=== PATIENT | male | born 1945 | race Caucasian/White ===

== ENCOUNTER 2023-11-25 12:32 | Inpatient (IN) | payer OTHER ==
[2023-11-25 14:16] LABS: BASO % 0.9 % (0-2.0); EOS % 2.6 % (0-4.5); HEMATOCRIT 17.2 % (35.4-49); LYMPH % 7.3 % (8-40); MCH 29.5 pg (25.7-33.7); MCHC 31.6 g/dl (32.0-35.9); MEAN CELL VOLUME 93.2 fl (80-96); MEAN PLT VOLUME 6.4 fl (7.5-11.1); MONO % 10.9 % (3.8-10.2); NEUT % 78.3 % (42.8-82.8); PLATELET COUNT 229 10^3/uL (134-434); RBC 1.85 M/mm3 (4.00-5.60); RDW 19.5 % (11.9-15.9); WHITE BLOOD COUNT 13.5 K/mm3 (4.0-10.0)
[2023-11-25 14:22] LABS: INR 1.3 (0.83-1.09); PROTHROMBIN TIME (PATIENT) 14.6 SEC (9.7-13.0)
[2023-11-25 14:24] LABS: HEMOGLOBIN 5.4 GM/dL (11.7-16.9)
[2023-11-25 14:25] LABS: ACTIVATED PTT 33.3 SECONDS (25.2-36.5)
[2023-11-25 14:35] LABS: RETICULOCYTES 2.18 % (0.5-1.5)
[2023-11-25 14:40] LABS: CHLORIDE 105 mmol/L (98-107); POTASSIUM 3.3 mmol/L (3.5-5.1); SODIUM 142 mmol/L (136-145)
[2023-11-25 14:42] LABS: CALCIUM 8.8 mg/dL (8.5-10.1)
[2023-11-25 14:43] LABS: ALBUMIN 2.1 g/dl (3.4-5.0); ANION GAP 11 mmol/L (4-13); BLOOD UREA NITROGEN 45.4 mg/dL (7-18); CO2 25 mmol/L (21-32); GLUCOSE,RANDOM 87 mg/dL (74-106); MAGNESIUM 2.2 mg/dL (1.8-2.4)
[2023-11-25 14:46] LABS: CREATININE 6.4 mg/dL (0.55-1.3); PHOSPHOROUS 2.7 mg/dL (2.5-4.9); SGOT/AST 18 U/L (15-37); TOTAL IRON BINDING CAPACITY 102 ug/dL (250-450)
[2023-11-25 14:47] LABS: BILIRUBIN,TOTAL 0.5 mg/dL (0.2-1); IRON SERUM 21 ug/dL (50-175)
[2023-11-25 14:49] LABS: ALK PHOS 71 U/L (45-117)
[2023-11-25 14:54] LABS: SGPT/ALT < 6 U/L (13-61)
[2023-11-25] MEDS ORDERED: metoPROLOL SUCCINATE 25 MG TAB.SR.24H (FP) PO ONE (16:47)
[2023-11-25] MEDS: metoPROLOL SUCCINATE 25 MG TAB.SR.24H (FP) PO SCH (16:49)
[2023-11-25] MEDS ORDERED: SODIUM CHLORIDE 250 ML IV PRN (20:51)
[2023-11-25] MEDS ORDERED: hydrALAZINE HCL 25 MG TABLET (FP) PO SCH (22:00)
[2023-11-26 08:36] LABS: HEMATOCRIT 24.6 % (35.4-49); HEMOGLOBIN 8.1 GM/dL (11.7-16.9); MCH 30.2 pg (25.7-33.7); MCHC 33.1 g/dl (32.0-35.9); MEAN CELL VOLUME 91.2 fl (80-96); MEAN PLT VOLUME 6.5 fl (7.5-11.1); PLATELET COUNT 233 10^3/uL (134-434); RDW 17.7 % (11.9-15.9); WHITE BLOOD COUNT 18.1 K/mm3 (4.0-10.0)
[2023-11-26 08:48] LABS: CHLORIDE 104 mmol/L (98-107); POTASSIUM 3.4 mmol/L (3.5-5.1); SODIUM 141 mmol/L (136-145)
[2023-11-26 08:56] LABS: CALCIUM 9.2 mg/dL (8.5-10.1); CREATININE 7.2 mg/dL (0.55-1.3)
[2023-11-26 08:57] LABS: ALBUMIN 2.3 g/dl (3.4-5.0); ANION GAP 10 mmol/L (4-13); BLOOD UREA NITROGEN 53.4 mg/dL (7-18); CO2 26 mmol/L (21-32); GLUCOSE,RANDOM 86 mg/dL (74-106); SGOT/AST 15 U/L (15-37)
[2023-11-26 08:58] LABS: TOT PROT 7.4 g/dl (6.4-8.2)
[2023-11-26 08:59] LABS: ALK PHOS 78 U/L (45-117)
[2023-11-26 09:06] LABS: BILIRUBIN,TOTAL 0.8 mg/dL (0.2-1); SGPT/ALT < 6 U/L (13-61)
[2023-11-26 16:24] VITALS: BMI 19.8
[2023-11-26] MEDS: EPOETIN ALFA-EPBX 10,000 UNIT/ML VIAL SQ ONE (17:06)
[2023-11-27] MEDS: VANCOMYCIN/WATER FOR INJ (PEG) 1,000 MG/200 ML BAG IVPB ONE (03:29)
[2023-11-27] MEDS: ACETAMINOPHEN 1000 MG/100 ML BAG IVPB ONE (03:30)
[2023-11-27] MEDS: PIPERACILLIN/TAZOB 3.375 GM 3.375 GM in DEXTROSE 5%-WATER - 50 ML IVPB ONE (03:30)
[2023-11-27 07:54] LABS: HEMATOCRIT 26.6 % (35.4-49); HEMOGLOBIN 8.6 GM/dL (11.7-16.9); MCH 29.8 pg (25.7-33.7); MCHC 32.3 g/dl (32.0-35.9); MEAN CELL VOLUME 92.3 fl (80-96); PLATELET COUNT 244 10^3/uL (134-434); RBC 2.88 M/mm3 (4.00-5.60); RDW 18.3 % (11.9-15.9); WHITE BLOOD COUNT 24.6 K/mm3 (4.0-10.0)
[2023-11-27 08:00] LABS: CHLORIDE 102 mmol/L (98-107); POTASSIUM 3.3 mmol/L (3.5-5.1); SODIUM 141 mmol/L (136-145)
[2023-11-27 08:10] LABS: ALBUMIN 2.2 g/dl (3.4-5.0); ANION GAP 10 mmol/L (4-13); CO2 28 mmol/L (21-32); GLUCOSE,RANDOM 66 mg/dL (74-106)
[2023-11-27 08:11] LABS: CREATININE 4.4 mg/dL (0.55-1.3)
[2023-11-27 08:12] LABS: TOT PROT 7.4 g/dl (6.4-8.2)
[2023-11-27 08:13] LABS: ALK PHOS 84 U/L (45-117); BILIRUBIN,TOTAL 0.8 mg/dL (0.2-1)
[2023-11-27 08:14] LABS: SGOT/AST 22 U/L (15-37)
[2023-11-27 08:15] LABS: BLOOD UREA NITROGEN 28.3 mg/dL (7-18); SGPT/ALT < 6 U/L (13-61)
[2023-11-27 08:49] LABS: ANISOCYTOSIS 1+; MACROCYTOSIS 1+
[2023-11-27] MEDS: AMINO ACIDS 4.25%/D5W 1,000 ML IV SCH (09:29)
[2023-11-27 10:04] LABS: ARTERIAL BLOOD GAS BASE EXCESS 3.2 mmol/L (-2-2); ARTERIAL BLOOD GAS PO2 76.6 mmHg (80-100)
[2023-11-27 10:12] LABS: ALLENS TEST POSITIVE
[2023-11-27] MEDS: PIPERACILLIN/TAZOB 2.25 GM 2.25 GM in DEXTROSE 5%-WATER - 50 ML IVPB SCH ×3 (10:36→18:53)
[2023-11-27] MEDS ORDERED: SODIUM CHLORIDE 250 ML IV PRN (13:54)
[2023-11-27] MEDS: KCL 10 MEQ IVPB 10 MEQ/100 ML INFUS.BAG IVPB SCH (15:37)
[2023-11-28 07:44] LABS: BASO % 0.6 % (0-2.0); EOS % 1.1 % (0-4.5); HEMOGLOBIN 7.6 GM/dL (11.7-16.9); LYMPH % 7.4 % (8-40); MCH 29.7 pg (25.7-33.7); MCHC 31.7 g/dl (32.0-35.9); MEAN PLT VOLUME 7.1 fl (7.5-11.1); MONO % 10.6 % (3.8-10.2); NEUT % 80.3 % (42.8-82.8); PLATELET COUNT 218 10^3/uL (134-434); RBC 2.55 M/mm3 (4.00-5.60); RDW 18.6 % (11.9-15.9); WHITE BLOOD COUNT 22.7 K/mm3 (4.0-10.0)
[2023-11-28 08:01] LABS: CHLORIDE 102 mmol/L (98-107); POTASSIUM 3.6 mmol/L (3.5-5.1); SODIUM 140 mmol/L (136-145)
[2023-11-28 08:07] LABS: ALBUMIN 1.9 g/dl (3.4-5.0); ANION GAP 10 mmol/L (4-13); BLOOD UREA NITROGEN 44.3 mg/dL (7-18); CALCIUM 9.1 mg/dL (8.5-10.1); CO2 28 mmol/L (21-32)
[2023-11-28 08:08] LABS: GLUCOSE,RANDOM 98 mg/dL (74-106)
[2023-11-28 08:09] LABS: CREATININE 5.7 mg/dL (0.55-1.3)
[2023-11-28 08:10] LABS: SGOT/AST 25 U/L (15-37)
[2023-11-28 08:11] LABS: BILIRUBIN,TOTAL 0.6 mg/dL (0.2-1); TOT PROT 6.7 g/dl (6.4-8.2)
[2023-11-28 08:12] LABS: ALK PHOS 76 U/L (45-117)
[2023-11-28 08:13] LABS: SGPT/ALT < 6 U/L (13-61)
[2023-11-28 09:04] LABS: ANISOCYTOSIS 0; MACROCYTOSIS 0
[2023-11-28] MEDS: ACETAMINOPHEN 1000 MG/100 ML BAG IVPB PRN (12:29)
[2023-11-28] MEDS: EPOETIN ALFA-EPBX 10,000 UNIT/ML VIAL IVPUSH ONE (15:05)
[2023-11-28 18:10] LABS: IG A QN SERUM. 875 mg/dL (61-437)
[2023-11-28] MEDS: VANCOMYCIN/WATER FOR INJ (PEG) 1,000 MG/200 ML BAG IVPB ONE (18:36)
[2023-11-29 08:12] LABS: CHLORIDE 100 mmol/L (98-107); POTASSIUM 3.1 mmol/L (3.5-5.1); SODIUM 137 mmol/L (136-145)
[2023-11-29 08:18] LABS: ANION GAP 8 mmol/L (4-13); CALCIUM 8.9 mg/dL (8.5-10.1); CO2 29 mmol/L (21-32); GLUCOSE,RANDOM 91 mg/dL (74-106)
[2023-11-29 08:19] LABS: ALBUMIN 1.9 g/dl (3.4-5.0); BLOOD UREA NITROGEN 29.7 mg/dL (7-18)
[2023-11-29 08:22] LABS: CREATININE 3.9 mg/dL (0.55-1.3); SGOT/AST 30 U/L (15-37); SGPT/ALT < 6 U/L (13-61)
[2023-11-29 08:23] LABS: BILIRUBIN,TOTAL 0.6 mg/dL (0.2-1); TOT PROT 6.4 g/dl (6.4-8.2)
[2023-11-29 08:25] LABS: ALK PHOS 77 U/L (45-117)
[2023-11-29 08:28] LABS: HEMATOCRIT 23.1 % (35.4-49); HEMOGLOBIN 7.4 GM/dL (11.7-16.9); MCH 30.2 pg (25.7-33.7); MCHC 32.1 g/dl (32.0-35.9); MEAN CELL VOLUME 94.2 fl (80-96); MEAN PLT VOLUME 7.2 fl (7.5-11.1); PLATELET COUNT 196 10^3/uL (134-434); RBC 2.45 M/mm3 (4.00-5.60); WHITE BLOOD COUNT 21.7 K/mm3 (4.0-10.0)
[2023-11-29 09:49] LABS: ANISOCYTOSIS 1+; MACROCYTOSIS 0
[2023-12-01 07:59] LABS: CHLORIDE 99 mmol/L (98-107); POTASSIUM 3.6 mmol/L (3.5-5.1); SODIUM 134 mmol/L (136-145)
[2023-12-01 08:04] LABS: ALBUMIN 1.8 g/dl (3.4-5.0); CALCIUM 8.9 mg/dL (8.5-10.1); HEMATOCRIT 23.5 % (35.4-49); HEMOGLOBIN 7.5 GM/dL (11.7-16.9); MCH 29.9 pg (25.7-33.7); MEAN CELL VOLUME 93.4 fl (80-96); MEAN PLT VOLUME 7.2 fl (7.5-11.1); PLATELET COUNT 241 10^3/uL (134-434); RBC 2.51 M/mm3 (4.00-5.60); RDW 17.9 % (11.9-15.9); WHITE BLOOD COUNT 20.6 K/mm3 (4.0-10.0)
[2023-12-01 08:05] LABS: ANION GAP 10 mmol/L (4-13); CO2 25 mmol/L (21-32); GLUCOSE,RANDOM 105 mg/dL (74-106)
[2023-12-01 08:07] LABS: ALK PHOS 86 U/L (45-117); BILIRUBIN,TOTAL 0.4 mg/dL (0.2-1); SGOT/AST 37 U/L (15-37); TOT PROT 6.8 g/dl (6.4-8.2)
[2023-12-01 08:23] LABS: BLOOD UREA NITROGEN 61.8 mg/dL (7-18); SGPT/ALT < 6 U/L (13-61)
[2023-12-01 08:55] LABS: ANISOCYTOSIS 1+; MACROCYTOSIS 0
[2023-12-01] MEDS ORDERED: SODIUM CHLORIDE 250 ML IV PRN (12:00)
[2023-12-01] MEDS: EPOETIN ALFA-EPBX 4,000 UNIT/ML VIAL IVPUSH ONE (12:00)
[2023-12-01] MEDS: AMINO ACIDS/PROTEIN HYDROLYS 30 ML LIQUID.PKT PO SCH (17:11)
[2023-12-02] MEDS: SODIUM HYPOCHLORITE 0.25%- 473 ML BULK BOTTLE TP SCH (11:18)
[2023-12-02] MEDS: VITAMIN B COMP W-C 1 EA TABLET (NEPHRO-VITE) PO SCH (11:48)
[2023-12-02] MEDS ORDERED: SODIUM CHLORIDE 250 ML IV PRN (12:37)
[2023-12-02] MEDS ORDERED: PROPOFOL 20 ML ONE (13:29)
[2023-12-02] MEDS ORDERED: ROCURONIUM BROMIDE 50 MG/5 ML SYRINGE ONE (13:30)
[2023-12-02] MEDS ORDERED: FENTANYL CITRATE/PF 50 MCG/ML VIAL ONE ×3 (13:30→16:13)
[2023-12-02] MEDS ORDERED: ONDANSETRON 4 MG/2 ML VIAL IVPUSH PRN ×2 (14:53→15:18)
[2023-12-02] MEDS ORDERED: ACETAMINOPHEN 1000 MG/100 ML BAG IVPB PRN (15:18)
[2023-12-02] MEDS: AMINO ACIDS/PROTEIN HYDROLYS 30 ML LIQUID.PKT PO SCH (17:38)
[2023-12-02] MEDS: PIPERACILLIN/TAZOB 2.25 GM 2.25 GM in DEXTROSE 5%-WATER - 50 ML IVPB SCH (17:38)
[2023-12-03 08:04] LABS: BASO % 1.1 % (0-2.0); EOS % 3.6 % (0-4.5); HEMATOCRIT 24.2 % (35.4-49); HEMOGLOBIN 7.8 GM/dL (11.7-16.9); MCH 29.7 pg (25.7-33.7); MCHC 32.3 g/dl (32.0-35.9); MEAN PLT VOLUME 7.3 fl (7.5-11.1); MONO % 9.1 % (3.8-10.2); NEUT % 75.2 % (42.8-82.8); PLATELET COUNT 288 10^3/uL (134-434); RBC 2.63 M/mm3 (4.00-5.60); RDW 19.5 % (11.9-15.9); WHITE BLOOD COUNT 13.8 K/mm3 (4.0-10.0)
[2023-12-03 08:24] LABS: ALBUMIN 1.8 g/dl (3.4-5.0); BLOOD UREA NITROGEN 51.6 mg/dL (7-18); CALCIUM 8.5 mg/dL (8.5-10.1)
[2023-12-03 08:27] LABS: CREATININE 5.3 mg/dL (0.55-1.3)
[2023-12-03 08:29] LABS: BILIRUBIN,TOTAL 0.6 mg/dL (0.2-1); TOT PROT 6.8 g/dl (6.4-8.2)
[2023-12-03] MEDS ORDERED: SODIUM CHLORIDE 250 ML IV PRN (09:30)
[2023-12-03] MEDS: AMINO ACIDS 4.25%/D5W 1,000 ML IV SCH (09:57)
[2023-12-03] MEDS: EPOETIN ALFA-EPBX 10,000 UNIT/ML VIAL IVPUSH ONE (11:13)
[2023-12-03] MEDS ORDERED: EPOETIN ALFA-EPBX 10,000 UNIT/ML VIAL IVPUSH ONE (12:37)
[2023-12-03] MEDS: metoPROLOL SUCCINATE 25 MG TAB.SR.24H (FP) PO SCH (12:54)
[2023-12-03] MEDS: VITAMIN B COMP W-C 1 EA TABLET (NEPHRO-VITE) PO SCH (12:55)
[2023-12-05] MEDS ORDERED: SODIUM CHLORIDE 250 ML IV PRN (08:53)
[2023-12-05] MEDS: EPOETIN ALFA-EPBX 10,000 UNIT/ML VIAL SQ ONE (11:18)
[2023-12-05 11:38] LABS: POTASSIUM 3.4 mmol/L (3.5-5.1)
[2023-12-05 11:39] LABS: CALCIUM 8.7 mg/dL (8.5-10.1)
[2023-12-05 11:40] LABS: BLOOD UREA NITROGEN 45.8 mg/dL (7-18)
[2023-12-05 11:43] LABS: CREATININE 5.8 mg/dL (0.55-1.3)
[2023-12-08] MEDS ORDERED: SODIUM CHLORIDE 250 ML IV PRN (09:04)
[2023-12-08 10:08] LABS: POTASSIUM 3.5 mmol/L (3.5-5.1)
[2023-12-08 10:13] LABS: CALCIUM 8.5 mg/dL (8.5-10.1); HEMATOCRIT 23.4 % (35.4-49); HEMOGLOBIN 7.3 GM/dL (11.7-16.9); MCH 28.9 pg (25.7-33.7); MCHC 31.4 g/dl (32.0-35.9); MEAN PLT VOLUME 6.9 fl (7.5-11.1); PLATELET COUNT 563 10^3/uL (134-434); RBC 2.54 M/mm3 (4.00-5.60); RDW 18.6 % (11.9-15.9); WHITE BLOOD COUNT 16.2 K/mm3 (4.0-10.0)
[2023-12-08 10:14] LABS: BLOOD UREA NITROGEN 56.6 mg/dL (7-18)
[2023-12-08 10:16] LABS: CREATININE 7.3 mg/dL (0.55-1.3)
[2023-12-08] MEDS: EPOETIN ALFA-EPBX 10,000 UNIT/ML VIAL SQ ONE (11:23)
[2023-12-08] MEDS: ACETAMINOPHEN 500 MG TABLET (FP) PO PRN (13:32)
[2023-12-09 06:26] VITALS: PULSE 73
[2023-12-09 11:39] VITALS: BP 144/65; RESP 16; TEMP 97.5
== END 2023-12-09 12:16 | DRG 853 ==
LOC: JER 12:32 → JERBED 16:25 → J4S 18:20 → OBSVTOIN 11-28 12:17 → J4W 11-28 17:21
PROVIDERS: ADMIT Internal Medicine; ATTEND Internal Medicine
PROC: 30233N1 Transfusion of Nonautologous Red Blood Cells into Peripheral Vein, Percutaneous Approach (ICD-10-PCS; 2023-11-25)
PROC: 0KBN0ZZ Excision of Right Hip Muscle, Open Approach (ICD-10-PCS; 2023-12-02)
PROC: 0KBP0ZZ Excision of Left Hip Muscle, Open Approach (ICD-10-PCS; 2023-12-02)
PROC: 0JB70ZZ Excision of Back Subcutaneous Tissue and Fascia, Open Approach (ICD-10-PCS; principal; 2023-12-02 13:30)
PROC: 5A1D70Z Performance of Urinary Filtration, Intermittent, Less than 6 Hours Per Day (ICD-10-PCS; 2023-12-08)
DX: A41.9 Sepsis, unspecified organism (principal); E43 Unspecified severe protein-calorie malnutrition; L89.154 Pressure ulcer of sacral region, stage 4; N18.6 End stage renal disease; R53.2 Functional quadriplegia; J69.0 Pneumonitis due to inhalation of food and vomit; I63.9 Cerebral infarction, unspecified; I12.0 Hypertensive chronic kidney disease with stage 5 chronic kidney disease or end stage renal disease; Z68.1 Body mass index [BMI] 19.9 or less, adult; G30.9 Alzheimer's disease, unspecified; I73.9 Peripheral vascular disease, unspecified; D64.9 Anemia, unspecified; E78.5 Hyperlipidemia, unspecified; Z89.519 Acquired absence of unspecified leg below knee; Z99.2 Dependence on renal dialysis
CPT/HCPCS: 0241U-QW; 36415; 36430; 36600; 70450-TC; 70551-TC; 71045-TC-FY; 80048; 80053; 82140; 82272; 82728; 82784; 82803; 82962; 83540; 83550; 83735; 84100; 84155; 84165; 84443; 84484; 85025; 85027; 85045; 85610; 85730; 86704; 86705; 86803; 86850; 86900; 86901; 86922; 87040; 87340; 87517; 88304-TC; 93005; 93010; 93306-TC; 94760; 99285-25; G0378; G0480; J0131; J2997; P9038; P9058; Q5106